=== PATIENT | female | born 1985 | race Caucasian/White ===

== ENCOUNTER → 2024-04-04 | Outpatient (REF) | payer BC, SELFPAY | LOC: DHSLP | PROVIDERS: ATTENDING PHYSICIAN Internal Medicine; FAMILY PHYSICIAN Physician Assistant Medical | DX: G47.19 Other hypersomnia (principal); G47.8 Other sleep disorders | CPT/HCPCS: 95810 ==

== ENCOUNTER → 2024-04-05 07:00 | Outpatient (REF) | payer BC, SELFPAY | LOC: DHSLP 07:00 | PROVIDERS: ATTENDING PHYSICIAN Internal Medicine; FAMILY PHYSICIAN Physician Assistant Medical | DX: G47.19 Other hypersomnia (principal); G47.8 Other sleep disorders | CPT/HCPCS: 95805 ==